=== PATIENT | female | born 1995 | race Caucasian/White ===

== ENCOUNTER 2017-03-26 20:16 | Inpatient (IN) ==
[2017-03-26] MEDS ORDERED: MORPHINE 2 MG/1 ML SYRINGE IV STA (20:41)
[2017-03-26] MEDS ORDERED: ONDANSETRON 4 MG/2 ML VIAL IV STA (20:41)
--- NOTE | 2017-03-26 20:44 | Emergency Department Note ---
Arrival - Arrival Chief Complaint: Abdominal / Flank Pain Stated Complaint: hurting in stomach and back ED Nursing Triage Note: C/O Upper abd pain radiating into back. Onset 1600 today. Last BM today- Normal. +nausea. Denies vomiting. Denies urinary s/s. Denies fever. Denies abnormal vaginal discharge/bleeding. Mode of Arrival: Ambulatory Limitations: No Limitations Source: Patient Time Seen by Provider: 03/26/17 20:35 - History of Present Illness HPI Narrative: Patient complains of right upper quadrant and epigastric pain radiating to the mid back since around 4:00 this afternoon. She describes the abdominal pain as "feeling full" and the back pain as sharp. She has had nausea but no vomiting. No fever. She has not had similar symptoms in the past. She denies any urinary symptoms. Her last menstrual period was in November but she is on Depo- Provera. Date of Last Menstrual Period: Spotting now- Depo shot beginning of January Allergies/Adverse Reactions: Allergies Allergy/AdvReac Type Severity Reaction Status Date / Time No Known Allergies Allergy Verified 03/26/17 20:20 Home Medications: Home Medications Medication Instructions Recorded Confirmed Type Citalopram [CeleXA] 40 mg PO DAILY 03/26/17 03/26/17 History Review of System - Review of System 12 point system: reviewed and no additional remarkable complaints except as stated - Review of System Constitutional: Absent: fever Cardiovascular: Absent: chest pain Gastrointestinal: Present: abdominal pain, nausea. Absent: vomiting, diarrhea, constipation Genitourinary female: Present: abnormal menses. Absent: dysuria, discharge, frequency Musculoskeletal: Present: back pain Medical,Surgical,& Family Hx - Medical History Psychological: History of: Anxiety Disorders, Depression - Surgical History Surgical History: noncontributory - Family History Family History: noncontributory - Social History Smoking Status: Current every day smoker Frequency of Alcohol Use: None Type of Drug Use: None Exam Physical Examination: GENERAL: Alert. No acute distress. HEENT: Normocephalic and atraumatic. There is no nasal drainage. No pharyngeal erythema or exudate. NECK: Normal inspection. Supple. No lymphadenopathy or meningismus. LUNGS: No respiratory distress. Clear to auscultation bilaterally, no wheezes, rales or rhonchi. HEART: Regular rate and rhythm. ABDOMEN: Obese, soft, nondistended with normal bowel sounds. Mild right upper quadrant and epigastric tenderness without guarding or rebound. Positive Jones sign. BACK: Normal inspection. SKIN: Color normal. Warm and dry. EXTREMITIES: Nontender. Normal range of motion. No pedal edema. NEUROLOGICAL/PSYCHIATRIC: Alert and oriented -3 with normal mood and affect. Cranial nerves normal. No motor or sensory deficit. Vital Signs: Vital Signs Temperature 97.3 F L 03/26/17 20:47 Pulse Rate 80 03/26/17 20:47 Respiratory Rate 18 03/26/17 20:47 Blood Pressure 147/93 03/26/17 20:47 O2 Sat by Pulse Oximetry 97 03/26/17 20:20 Course - Reevaluation(s) Reevaluation #1: The patient's gallbladder ultrasound showed multiple stones there was no ductal dilation and the gallbladder wall thickness was only upper limits of normal. She does have an elevated white count and is fairly tender so I think she probably has cholecystitis. I discussed the patient with Dr. Restrepo and will admit to him. Time: 22:50 Results - Labs CBC & BMP: 03/26/17 20:35 03/26/17 20:35 Lab Results: I have reviewed the patients labs Labs: Laboratory Tests 03/26/17 03/26/17 20:35 20:35 Total Bilirubin < 0.39 AST 14 ALT 24 Alkaline Phosphatase 83 Amylase 44 Lipase 133.0 Urine Leukocytes Small H Urine RBC 11 Urine WBC 8 Ur Culture Indicated? Results to follow Urine Test Negative - Impressions Gallbladder ultrasound shows multiple gallstones with the gallbladder wall thickness at the upper limit of normal. No pericholecystic fluid. Disposition Clinical Impression: Abdominal pain, Cholecystitis, UTI (urinary tract infection) Case discussed with: patient, patient's family Disposition: Still a Patient Condition: Stable Time of Disposition: 22:51
[2017-03-26 20:54] LABS: Basophils # 0.1 10*3/uL (0.0-0.2); Basophils % 0.4 % (0.0-0.8); Eosinophils # 0.1 10*3/uL (0.0-0.87); Eosinophils % 0.9 % (0.00-10.9); Hematocrit 40.8 VOL% (35.7-47.0); Hemoglobin 14.1 GM/DL (12.0-16.0); Immature Granulocytes % 0.6 %; Immature Granulocytes Absolute 0.09 #; Lymphocytes # 4.5 10*3/uL (1.4-4.0); Lymphocytes % 27.8 % (21.3-54.2); Mean Corpuscular HGB Conc 34.6 GM/DL (32-36); Mean Corpuscular Hemoglobin 31 PG (27-34); Mean Corpuscular Volume 89.7 FL (87-102); Mean Platelet Volume 8.9 FL (9.6-12.0); Monocytes # 1.2 10*3/uL (0.11-0.8); Monocytes % 7.2 % (1.7-12.7); Neutrophils # 10.2 10*3/uL (1.4-7.4); Neutrophils % 63.1 % (38.7-73.9); Platelet Count 313 T/CUMM (130-400); Red Blood Count 4.55 MC/CUMM (3.8-5.5); Red Cell Distribution Width 12.6 % (9.3-17.3); White Blood Count 16.2 T/CUMM (4-12)
[2017-03-26] MEDS ORDERED: ONDANSETRON 4 MG/2 ML VIAL ONE (21:02)
[2017-03-26] MEDS ORDERED: MORPHINE 2 MG/1 ML SYRINGE ONE (21:03)
[2017-03-26 21:11] LABS: Apearance,Urine CLOUDY (Clear); Bilirubin,Urine Negative (Negative); Blood, Urine Large mg/dL (Negative); Calcium Oxalate Crystals,Urine Few /HPF (Few); Glucose,Urine (UA) Negative (Negative); Hyaline Casts,Urine 11 /LPF (0-3); Ketones,Urine Negative (Negative); Mucus,Urine Occasional /LPF (Occasional); Nitrite,Urine Negative (Negative); Protein,Urine 30 MG/DL; RBC,Urine 11 /HPF (0-4); Squamous Epithelial Cell,Urine Few /HPF (0-10); Urine Color Yellow (Yellow); Urine Specific Gravity 1.023 (1.001-1.035); Urine Urobilinogen < 2.0 EU/DL (0.2-1.0); WBC,Urine 8 /HPF (0-6)
[2017-03-26 21:40] LABS: Alanine Aminotransferase 24 U/L (13-56); Alkaline Phosphatase 83 U/L (45-117); Amylase 44 U/L (25-115); Aspartate Amino Transferase 14 U/L (0-37); Bilirubin,Total < 0.39 MG/DL (0.2-1.0); Blood Urea Nitrogen 12 MG/DL (7-18); Calcium 10.1 MG/DL (8.5-10.1); Glucose 83 MG/DL (74-106); Osmolality,Calculated 277.4 MOS/KG (273-304); Sodium 140 MMOL/L (136-145)
[2017-03-26] MEDS ORDERED: ONDANSETRON 4 MG/2 ML VIAL IV PRN (23:34)
[2017-03-26] MEDS ORDERED: PROMETHAZINE 25 MG/1 ML VIAL IM PRN (23:34)
[2017-03-27] MEDS: LEVOFLOXACIN INJ 750 MG in PREMIX 1 EACH IV SCH ×2 (00:32→23:32)
[2017-03-27] MEDS: DEXTROSE 5% NACL 0.45% 1,000 ML IV SCH ×4 (00:34→23:37)
[2017-03-27] MEDS: HYDROmorphone 2 MG/1 ML VIAL IV PRN ×6 (00:39→22:18)
--- NOTE | 2017-03-27 06:16 | Ultrasound Report ---
US gallbladder Indication: Right upper quadrant pain. Comparison: None. Technique: Multiple longitudinal and transverse real-time sonographic images of the right upper quadrant of the abdomen are obtained. Findings: The liver measures 15.4 cm and demonstrates normal echogenicity without focal abnormality. Moderate volume stones/sludge within the gallbladder lumen. No evidence of gallbladder distention or significant wall thickening. Sonographic Jones sign is reported as negative. The common duct measures 0.45 cm in diameter and there is no evidence of intrahepatic ductal dilation. Right kidney measures 10.5 cm. Pancreas obscured secondary to bowel gas. Visualized portion of IVC and aorta grossly unremarkable. IMPRESSION: Cholelithiasis/biliary sludge. Preliminary report issued by virtual radiology. PROCEDURE INTERPRETED AT [facility] DEPARTMENT OF RADIOLOGY Final Report Signed by: Dr Star Salas
[2017-03-27] MEDS ORDERED: ceFAZolin 2,000 MG in PREMIX 1 EACH IV ONE (06:52)
--- NOTE | 2017-03-27 06:57 | General Surg History&Physical ---
Assessment and Plan - Time spent with patient Time spent with patient: Greater than 30 minutes (1) Cholecystitis Status: Acute Assessment and plan: Impression: Abdominal pain secondary to cholecystitis cholelithiasis. Plan: Laparoscopic cholecystectomy Current Visit: Yes History of Present Illness Chief complaint: Abdominal pain right upper quadrant History of present illness: Ms. Earl is a 21 year old female white who apparently knew that she had gallstones from her previous ultrasound several months ago but is denied any significant symptoms associated with it. She has noticed that certain foods give her some abdominal discomfort and indigestion or what she would say upset stomach at times. She had the onset of pain before she had anything to eat yesterday and then when she had eaten something the pain got progressively worse. She was seen in emergency room where an ultrasound confirmed that she had gallstones and liver function studies were normal. White count was slightly elevated at that point. She was put in on IV antibiotics and this morning the tenderness is they are but less and she feels somewhat better. Long discussion with her about her disease process and the indications for surgery. She agrees to surgery and complications and is willing to undergo the surgery at this time. Home Medications Medication Instructions Recorded Confirmed Type Citalopram [CeleXA] 40 mg PO DAILY 03/26/17 03/26/17 History Allergies Allergy/AdvReac Type Severity Reaction Status Date / Time No Known Allergies Allergy Verified 03/26/17 20:20 Medical,Surgical,& Family Hx - Medical History Cardio: History of: Cardiac Dysrhythmia Psychological: History of: Anxiety Disorders No history of: Depression HEENT: No history of: HEENT Problems - Surgical History HEENT Surgeries: Surgical HX of: Tonsilectomy & Adenoidectomy - Family History Family History: Reports;: Family Cancer, Family Diabetes, Family Heart Disease, Family Stroke - Social History Smoking Status: Current every day smoker Frequency of Alcohol Use: None Type of Drug Use: None Exam - Constitutional Vitals: Period Temp Pulse Resp BP Sys/Santos Pulse Ox Last 24 Hr 96.9 F-97.1 F 70-92 18-20 121-168/57-106 97-99 General appearance: mild distress - Head Head exam: Present: normal inspection - ENT ENT exam: Present: normal exam - Neck Neck exam: Present: normal inspection - Respiratory Respiratory exam: Present: clear to auscultation bilaterally, rales - Cardiovascular Cardiovascular exam: Present: RRR - GI/Abdominal GI/Abdominal exam: Present: hypoactive bowel sounds, tenderness (Right upper quadrant right flank area), soft. Absent: distended - Extremities Exam Extremities exam: Present: normal inspection - Back Exam Back exam: Present: normal inspection - Neurological Exam Neurological exam: Present: alert, oriented X3, CN II-XII intact - Skin Skin exam: Present: normal color, warm, dry 12 point system: reviewed and no additional remarkable complaints except as stated Quality Measures - VTE Contraindication to Pharmacological VTE Prophylaxis: High Risk of Bleeding Results - Labs CBC & BMP: 03/26/17 20:35 03/26/17 20:35 Lab Results: I have reviewed the past 24 hour labs - Diagnostic Findings Procedure: Ultrasound: report reviewed by me (Gallstones)
--- NOTE | 2017-03-27 07:29 | XRay Report ---
XR chest 1V portable Indication: Preop for gallbladder Comparison: None Technique: Single frontal view of the chest Findings: Heart size appears within normal limits. Minimal elevation of the left hemidiaphragm. No focal consolidation, pleural effusion, or pneumothorax. Osseous and surrounding soft tissue structures demonstrate no acute abnormality. IMPRESSION: No acute cardiopulmonary process demonstrated. PROCEDURE INTERPRETED AT [facility] DEPARTMENT OF RADIOLOGY Final Report Signed by: Dr Star Salas
[2017-03-27 08:28] LABS: Basophils # 0.1 10*3/uL (0.0-0.2); Basophils % 0.6 % (0.0-0.8); Eosinophils # 0.2 10*3/uL (0.0-0.87); Eosinophils % 1.3 % (0.00-10.9); Hematocrit 39.9 VOL% (35.7-47.0); Hemoglobin 13.5 GM/DL (12.0-16.0); Immature Granulocytes % 0.9 %; Immature Granulocytes Absolute 0.12 #; Lymphocytes # 4.8 10*3/uL (1.4-4.0); Lymphocytes % 34.7 % (21.3-54.2); Mean Corpuscular HGB Conc 33.8 GM/DL (32-36); Mean Corpuscular Hemoglobin 31 PG (27-34); Mean Corpuscular Volume 90.1 FL (87-102); Monocytes # 1.1 10*3/uL (0.11-0.8); Monocytes % 7.7 % (1.7-12.7); Neutrophils # 7.6 10*3/uL (1.4-7.4); Neutrophils % 54.8 % (38.7-73.9); Platelet Count 302 T/CUMM (130-400); Red Blood Count 4.43 MC/CUMM (3.8-5.5); Red Cell Distribution Width 12.8 % (9.3-17.3); White Blood Count 13.9 T/CUMM (4-12)
--- NOTE | 2017-03-27 08:44 | EKG Report ---
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
[2017-03-27 08:57] LABS: Albumin 3.6 G/DL (3.4-5.0); Bilirubin,Total 0.7 MG/DL (0.2-1.0); Osmolality,Calculated 275.5 MOS/KG (273-304); Potassium 3.6 MMOL/L (3.5-5.1); Total Protein 6.6 G/DL (6.4-8.3)
[2017-03-27] MEDS: PANTOPRAZOLE 40 MG TABLET PO SCH (10:39)
[2017-03-27] MEDS ORDERED: TISSUE ADHESIVE 1 EACH APPLICATOR TOP ONE (12:26)
[2017-03-27] MEDS ORDERED: BUPIVACAINE MPF 0.25% /EPI 30 ML VIAL ONE (12:26)
[2017-03-27] MEDS ORDERED: PHENYLEPHRINE 1 MG/10 ML SYRINGE IV ONE (12:40)
[2017-03-27] MEDS ORDERED: ONDANSETRON 4 MG/2 ML VIAL ONE ×2 (12:40→15:26)
[2017-03-27] MEDS ORDERED: PROPOFOL 200 MG/20 ML VIAL IV ONE (12:40)
[2017-03-27] MEDS ORDERED: LIDOCAINE 2% 5 ML VIAL ONE (12:40)
[2017-03-27] MEDS ORDERED: GLYCOPYRROLATE 0.4 MG/2 ML VIAL ONE (12:40)
[2017-03-27] MEDS ORDERED: NEOSTIGMINE 10 MG/10 ML VIAL ONE (12:40)
[2017-03-27] MEDS ORDERED: SUCCINYLCHOLINE 200 MG/10 ML VIAL ONE (12:40)
[2017-03-27] MEDS ORDERED: ROCURONIUM 100 MG/10 ML VIAL IV ONE (12:40)
[2017-03-27] MEDS ORDERED: ACETAMINOPHEN 325 MG TABLET PO PRN (14:33)
[2017-03-27] MEDS ORDERED: fentaNYL 100 MCG/2 ML VIAL ONE (14:37)
[2017-03-27] MEDS ORDERED: MIDAZOLAM 2 MG/2 ML VIAL ONE (14:38)
[2017-03-27] MEDS ORDERED: ONDANSETRON 4 MG/2 ML VIAL IV PRN ×2 (14:39→15:25)
--- NOTE | 2017-03-27 14:49 | Operative Note ---
Date of procedure: 03/27/17 Pre-op diagnosis: Cholecystitis with cholelithiasis Post-op diagnosis: other (Cholecystitis cholelithiasis with intra-abdominal adhesions) Procedure: Operative note: Preoperative diagnosis: Abdominal pain secondary to cholecystitis with cholelithiasis. Postop diagnosis: Cholecystitis cholelithiasis with intra-abdominal adhesions Procedure: 1. Laparoscopic cholecystectomy with intraoperative cholangiogram. 2. Lysis of adhesions and intra-abdominal laparoscopic Surgeon Dr. Restrepo Heeler Machine Bing James, DESKTOP TECHNICIAN ACNP Anesthesia was general endotracheal withl local Brief history: 21-year-old white female with known gallstones who comes in with acute attack of abdominal pain with some nausea and right upper quadrant tenderness. Ultrasound showed stones and her liver function studies were normal at this time. Because of her history of some vague attacks and now more significant attack we like to bring her surgery and remove the gallbladder. Procedure: With patient prepped and draped in a sterile fashion timeout and antibiotics completed approaches area of the abdomen at this time. She has a large rotund abdomen margin massively obese at this time. She also had an umbilical jewelry that was removed but has a defect from that jewelry. I like to make an incision just above the umbilicus after but he had local anesthetic we made an incision with a knife and dissected down into this deep subtenons tissue to identify the fascia. It was difficult to get to get to the bottom of this for we did and made an incision in the fascia with a knife I was able elevate that up and I could get in with a 5 mm trocar easily but I had some difficulty with the 11. But the 5 and then we filled the abdomen with 3 L of CO2 and put her scope C and begin to look around. We discovered was that she had significant adhesions in the anterior abdominal wall just below the liver probably larissa secondary to some pelvic inflammatory disease in the past. We could not get her other trochars in because of these adhesions so I did place the epigastric port in and he got into the falciform ligament. I was able to get in though and take the scissors and lyse those adhesions from the anterior abdominal wall and to a point where I could get in the 5 mm trocar at the anterior axillary midclavicular line under direct vision. I then secured the 11 mm epigastric port through the falciform so we get in and out easily. Once we did that we put the patient upright tilted left side position. The colon was somewhat distended over the top of this we could push it down see the gallbladder on the liver which was hayes not unusually distended and not but mildly thickened. I was able to grasp the fundus the gallbladder and elevate that up and then dissected down until I could see the infundibulum I then carefully begin dissected in this area to identify the cystic duct. I put a clip on it proximally and made a little incision in it. Made several attempts to put the Cholangiocath in due to her size and position it was difficult and I could never thread it. At that point I felt it was best not to continue struggling that this does renew her liver function studies were normal. Clearly knowing that this is a cystic duct going into the gallbladder was able to put 3 clips on it distally and divided that duct. We carefully dissected out the cystic artery and placed 3 clips on it proximally 1 distally and divided it another branch of the artery was identified 3 clips placed on it proximally 1 distally and it was divided. At that point I was able to dissected gallbladder out by incising peritoneal attachments anteriorly and posteriorly and carefully dissecting the gallbladder out of the liver bed. We did get into the liver in the upper part of it a little bit without any significant bleeding. Once the gallbladder was free from the liver bed we placed in an Endo Catch bag and brought it out through the umbilical port. I went back in washed irrigated above and below the liver touch the liver bed several places electrocauterization. We are looking as dry as I can get it out felt the need to go ahead and lay a Surgicel in his liver bed which we did. We then pulled our other trochars with no bleeding from them. At that point went back to the umbilical trocar and closed it down with interrupted 0 Monocryl suture with some difficulty. Once that was closed we washed out subtenons tissue closed with 3-0 Vicryl closed the skin running 4-0 Monocryl Dermabond was applied to the wounds and the patient taken recovery room in stable satisfactory condition. Sponge counts correct is no blood loss 30-40 cc. Anesthesia: GETA, local (0.25% Marcaine with epinephrine mixed [id number] 1% Xylocaine plain) Surgeon / Physician: Helio Restrepo Heeler Machine: Bing James Estimated blood loss: other (30 cc) Specimens: other (Gallbladder) Condition: stable Disposition: floor Results - Labs CBC & BMP: 03/27/17 08:12 03/27/17 08:12 Discharge Plan - Discharge Medications No Action Citalopram [CeleXA] 40 mg PO DAILY - Follow Up or Referral - Forms/Instructions
--- NOTE | 2017-03-27 15:07 | Anesthesia Post-Op ---
Anesthesia Post OP - Post Ansesthetic Evaluation Patient seen in post op: Yes Resp: within normal limits CV: within normal limits Mental: within normal limits Temp: within normal limits [id number]-[id number]: within normal limits Nausea and Vomiting: within normal limits Pain: within normal limits
[2017-03-27] MEDS ORDERED: HYDROmorphone 2 MG/1 ML VIAL ONE (15:26)
[2017-03-27] MEDS: KETOROLAC 15 MG/1 ML VIAL IV SCH ×2 (16:38→21:29)
[2017-03-27 21:32] LABS: Hemoglobin 12.2 GM/DL (12.0-16.0)
[2017-03-27] MEDS: ceFAZolin 2,000 MG in PREMIX 1 EACH IV SCH (21:33)
[2017-03-28] MEDS: KETOROLAC 15 MG/1 ML VIAL IV SCH ×2 (02:36→10:51)
[2017-03-28] MEDS: ceFAZolin 2,000 MG in PREMIX 1 EACH IV SCH (04:11)
[2017-03-28 05:56] LABS: Basophils # 0.1 10*3/uL (0.0-0.2); Basophils % 0.5 % (0.0-0.8); Eosinophils # 0.1 10*3/uL (0.0-0.87); Eosinophils % 1.1 % (0.00-10.9); Hemoglobin 11.6 GM/DL (12.0-16.0); Immature Granulocytes % 0.5 %; Immature Granulocytes Absolute 0.06 #; Lymphocytes # 3.3 10*3/uL (1.4-4.0); Lymphocytes % 29.9 % (21.3-54.2); Mean Corpuscular HGB Conc 32.2 GM/DL (32-36); Mean Corpuscular Hemoglobin 31 PG (27-34); Monocytes # 0.9 10*3/uL (0.11-0.8); Monocytes % 8.4 % (1.7-12.7); Neutrophils # 6.5 10*3/uL (1.4-7.4); Neutrophils % 59.6 % (38.7-73.9); Platelet Count 230 T/CUMM (130-400); Red Blood Count 3.79 MC/CUMM (3.8-5.5); Red Cell Distribution Width 13.1 % (9.3-17.3); White Blood Count 10.9 T/CUMM (4-12)
[2017-03-28 06:37] LABS: Albumin 2.8 G/DL (3.4-5.0); Bilirubin,Total 0.6 MG/DL (0.2-1.0); Calcium 8.2 MG/DL (8.5-10.1); Osmolality,Calculated 277.3 MOS/KG (273-304); Potassium 4.1 MMOL/L (3.5-5.1); Total Protein 5.3 G/DL (6.4-8.3)
[2017-03-28] MEDS ORDERED: ENOXAPARIN 40 MG/0.4 ML SYRINGE SUBCUT SCH (08:38)
[2017-03-28] MEDS ORDERED: CITALOPRAM 40 MG TABLET PO SCH (09:00)
--- NOTE | 2017-03-28 09:33 | Discharge Summary ---
Hospital Course - Hospital Course Hospital Course: Brief summary: This 21-year-old white female was admitted to the emergency room after onset previous day at 4 PM of right upper quadrant abdominal pain. This failed to improve with conservative treatment and was associated with mild nausea. She presented to the emergency room, where ultrasound of the abdomen showed multiple gallstones. Her liver function studies were within normal limits, but her white blood count was mildly elevated. Surgery was consulted, and patient was offered laparoscopic cholecystectomy. On the morning of 2016 she was taken to the OR where uncomplicated laparoscopic cholecystectomy was performed. She was found to have incidental numerous intra-pelvic, infrahepatic, and intraperitoneal adhesions, which were lysed at the time of surgery. Intraoperative cholangiogram was attempted, but we were unable to successfully thread the catheter due to positioning inf of the cystic duct, so this procedure was abandoned in light of her negative elevated liver function studies. Postoperatively she is doing quite well, without nausea or vomiting. She is able to tolerate a regular diet this morning, she is voiding without difficulty, and her vital signs and labs are within normal limits. She is having very minimal discomfort, her incisions are clean dry without any evidence of bruising or bleeding. She is able to ambulate about the room, has very minimal discomfort, and as it support at home. With her doing so well was elected to discharge her home. We will just give her some tramadol for pain and plan to see her in the office and 10-14 days for suture removal. - Time spent with patient Time with patient DS: Less than 30 minutes Diagnosis - Discharge Diagnosis (1) Cholecystitis Status: Acute Specialty Discharge - Follow Up or Referrals Follow up with: Helio Restrepo MD [Physician] - (See Bing or Dr Restrepo in 1-2 weeks) Discharge Plan - Discharge Data Disposition: Disch To Home/Self Care Condition at Discharge: Stable Discharge Diet: advance to your usual diet Activity: increase activity as tolerated, no lifting Hygiene: may shower Weight Bearing at Discharge: full weight bearing Driving: not for (1 week) Contact your physician if you experience:: fever over 101, Difficulty voiding, Redness or swelling, Nausea/Vomiting, Shortness of breath, Bleeding, pain uncontrolled by pain medications Wound / Dressing Care Instructions: Shower daily using antibacterial soap and water. Rinse well. Avoid all lotions emollients creams or ointments over the incisions. If the incisions are irritated by clothing, okay to use a Band-Aid to cover. Otherwise leave open to air. Do not remove sutures. - Discharge Medications New Tramadol HCl [Tramadol Tab] 50 mg PO Q6H PRN #20 tablet PRN Reason: Pain Moderate To Severe (4-10) Continue Citalopram [CeleXA] 40 mg PO DAILY - Follow Up or Referral - Forms/Instructions Forms: Acute Care Work/School Release Exam - Constitutional Vitals: Period Temp Pulse Resp BP Sys/Santos Pulse Ox Last 24 Hr 97.2 F-98.9 F 75-102 16-20 91-149/50-96 93-100 General appearance: no acute distress, over weight - Head Head exam: Present: normocephalic - Eye Eye exam: Present: EOMI Pupils: Present: CHRISTIAN - Respiratory Respiratory exam: Present: clear to auscultation bilaterally - Cardiovascular Cardiovascular exam: Present: regular rate and rhythm - GI/Abdominal GI/Abdominal exam: Present: other (Abdomen is obese soft nondistended she is appropriately tender over the incisions. These are clean and dry without unusual ecchymoses. There is no bleeding, suture material is intact, and there is no unusual induration present.) - Back Exam Back exam: Present: normal inspection - Neurological Exam Neurological exam: Present: alert, oriented X3 - Psychiatric Psychiatric exam: Present: normal affect, normal mood. Absent: agitated, anxious - Skin Skin exam: Present: warm, dry Discharge Results Labs on day of discharge: Labs from last 24 hours 03/28/17 03/28/17 03/27/17 05:23 05:23 21:15 WBC 10.9 RBC 3.79 L Hgb 11.6 L 12.2 Hct 36.0 37.0 MCV 95.0 MCH 31 MCHC 32.2 RDW 13.1 Plt Count 230 D MPV 9.0 L Neut % (Auto) 59.6 Lymph % (Auto) 29.9 Taney % (Auto) 8.4 Eos % (Auto) 1.1 Baso % (Auto) 0.5 Neut # (Auto) 6.5 Lymph # (Auto) 3.3 Taney # (Auto) 0.9 H Eos # (Auto) 0.1 Baso # (Auto) 0.1 Immature Gran % 0.5 Nucleated RBC % 0.0 Immature Gran # 0.06 Nucleated RBCs # 0.00 Sodium 141 Potassium 4.1 Chloride 107 Carbon Dioxide 26 Anion Gap 12.1 BUN 4 L Creatinine 0.80 GFR Calculation 133 BUN/Creatinine Ratio 5.00 L Glucose 105 Calculated Osmolality 277.3 Calcium 8.2 L Total Bilirubin 0.60 AST 58 H ALT 80 H Alkaline Phosphatase 79 Total Protein 5.3 L Albumin 2.8 L Globulin 2.5 Albumin/Globulin Ratio 1.1 Preliminary micro results at discharge 03/26/17 Unknown Urine Culture - Preliminary Urine,Voided No Growth at 12 hours. DS: Provider Date of admission: 03/26/17 22:52 Primary care physician: . No PCP Attending physician on admission: Helio Restrepo MD Consults: 03/27/17 06:54 Consult to Anesthesiology [CONS] Routine Consulting Provider: Reason for Anesthesiology: Pre-op Clearance Consult Comment: laparascopic cholecystecctomy 03/27/17 14:44 Consult to Pharmacy [CONS] Routine Reason for Pharmacy Consult: Adjust Meds Renal Funct Discharging clinician: Bing James CNP, R
[2017-03-28] MEDS: DEXTROSE 5% NACL 0.45% 1,000 ML IV SCH (10:49)
[2017-03-28] MEDS: PANTOPRAZOLE 40 MG TABLET PO SCH (10:50)
[2017-03-28 11:41] VITALS: BP 98/54
== END 2017-03-28 11:45 | disposition home or self-care (01) | DRG 418 ==
LOC: N.ED 20:16 → N.EDINP 20:16 → OBSVTOIN 22:52 → N.3E 23:12
PROVIDERS: ADMIT Specialist; ATTEND Specialist
PROC: LAPCHOL (2017-03-27 12:40)